=== PATIENT | female | born 1995 | race Caucasian/White ===

== ENCOUNTER 2017-01-27 22:06 | Emergency (ER) | payer BC, MEDICAID ==
[2017-01-27] MEDS ORDERED: Cyclobenzaprine 10 MG Tab PO ONE (22:43)
[2017-01-27] MEDS ORDERED: traMADol 50 MG Tab PO ONE (22:43)
--- NOTE | 2017-01-27 22:49 | EDM.PDOC ---
ED HPI GENERAL MEDICAL PROBLEM - General Chief Complaint: Abdominal Pain Stated Complaint: RT SIDE ABDOMINAL PAIN Time Seen by Provider: 01/27/17 22:44 Source of Information: Reports: Patient, Family, RN - History of Present Illness INITIAL COMMENTS - FREE TEXT/NARRATIVE: two day history of continuous right upper abdominal discomfort. no relation to eating no nausea no change in BM's no urinary symptoms works as a cook no tenderness to touch no dyspnea no cough no fever no prior similar symptoms recollected. she denies menstrual problems she denies chance of Past Medical History Cardiovascular History: Denies: Afib, Hypertension, AL Respiratory History: Denies: COPD Gastrointestinal History: Denies: Cirrhosis Genitourinary History: Denies: Chronic Renal Insuffiency Neurological History: Denies: CVA, MS Endocrine/Metabolic History: Denies: Diabetes, Type I, Diabetes, Type II ED ROS GENERAL - Review of Systems Review Of Systems: See Below Constitutional: Denies: Fever, Chills (see HPI) ED EXAM, GI/ABD - Physical Exam Exam: See Below (pain with passive stretch of abdominal muscles and active contraction of abdominal muscles but no tenderness to palpation when the patient is supine.) General Appearance: Alert, No Apparent Distress Throat/Mouth: Normal Lips, Normal Voice Head: Atraumatic Respiratory/Chest: No Respiratory Distress, Lungs Clear, Normal Breath Sounds Cardiovascular: Regular Rate, Rhythm GI/Abdominal Exam: Normal Bowel Sounds, Soft, Non-Tender, No Distention, No Mass. No: Distended, Guarding, Rigid, Rebound, Tender Neurological: Alert, Oriented, Normal Cognition Psychiatric: Normal Affect Course - Orders/Labs/Meds Orders: Active Orders 24 hr Category Date Time Status Cyclobenzaprine [Flexeril] Med 01/27/17 22:43 Once 10 mg PO ONETIME ONE traMADol [Ultram] Med 01/27/17 22:43 Once 100 mg PO ONETIME ONE - Re-Assessments/Exams Free Text/Narrative Re-Assessment/Exam: 01/27/17 22:48 we discussed potential work up now for the possibility of atypical biliary colic. We decided to give a therapeutic trial with plans for further evaluation if she is not improving. She agrees. Departure - Departure Time of Disposition: 22:50 Disposition: Home, Self-Care 01 Clinical Impression: Muscle strain - Discharge Information Forms: ED Department Discharge Additional Instructions: off work until Thursday tramadol may be habit forming, sedating and constipating recheck if not improving within two days; sooner if worsening occurs. your blood pressure was slightly elevated today; a recheck when you are feeling better is recommended. prescribed: tramadol 50 mg 1-2 po q 4 hours prn pain #20 flexeril 10 mg tid prn muscle pain #15 may use ibuprofen or tylenol as needed also Bayron Ortiz MD - My Orders Last 24 Hours: My Active Orders 01/27/17 22:43 Cyclobenzaprine [Flexeril] 10 mg PO ONETIME ONE traMADol [Ultram] 100 mg PO ONETIME ONE - Assessment/Plan Last 24 Hours: My Active Orders 01/27/17 22:43 Cyclobenzaprine [Flexeril] 10 mg PO ONETIME ONE traMADol [Ultram] 100 mg PO ONETIME ONE
[2017-01-27 23:10] VITALS: BP 131/77
== END 2017-01-27 23:06 | disposition home or self-care (01) ==
LOC: MW.ED 22:06
DX: S39.011A Strain of muscle, fascia and tendon of abdomen, initial encounter (principal); X58.XXXA Exposure to other specified factors, initial encounter
CPT/HCPCS: 99284; A9270; 99283

== ENCOUNTER 2017-08-19 04:38 | Emergency (ER) | payer SELFPAY ==
[2017-08-19] MEDS ORDERED: Sodium Chloride 0.9% 10 ML Syringe FLUSH PRN (04:51)
[2017-08-19] MEDS ORDERED: Sodium Chloride 0.9% 2.5 ML Syringe FLUSH PRN (04:51)
--- NOTE | 2017-08-19 04:55 | EDM.PDOC ---
ED HPI GENERAL MEDICAL PROBLEM - General Chief Complaint: Behavioral/Psych Stated Complaint: TOOK PILLS Time Seen by Provider: 08/19/17 04:40 - History of Present Illness INITIAL COMMENTS - FREE TEXT/NARRATIVE: HISTORY AND PHYSICAL: History of present illness: The patient is a 21-year-old female who presents with parents after she called her father saying that she "did something stupid". The father to call approximately 45 minutes ago and it is unclear when the patient actually took her overdose. Patient has a known history of depression and follows with our behavioral health counselor in the clinic and was just recently refilled a prescription on August 14 of Abilify 10 mg tablets #30 of which all are missing and her Prozac 40 mg was also refilled on this date of which 8 are missing. The patient has an old prescription for trazodone from July 2015 which is empty pill bottle but is unclear if she took any of these pills. Patient denies any coingestions of other medications and says that she is "just tired of all of this". This was an intentional gesture and according to the father she did have some vomiting at home which look like rice and beans that she had eaten earlier and he did not see any pills. Patient currently denies any chest pain shortness of breath abdominal pain nausea and has not had any systemic complaints earlier. According to the father he has noticed that she has been sleeping a lot when she is not at work and she recently got an eviction notice from where she lives which she believes may have pushed her into her behavior this evening. The patient says that she wants to give up and she has done with trying. Poison control was notified by me at 4:55 AM. Review of systems: As per history of present illness and below otherwise all systems reviewed and negative. Past medical history: As per history of present illness and as reviewed below otherwise noncontributory. Surgical history: As per history of present illness and as reviewed below otherwise noncontributory. Social history: No reported history of drug or alcohol abuse. Family history: As per history of present illness and as reviewed below otherwise noncontributory. Physical exam: Gen.: Well-developed well-nourished female who is overweight/obese about a signs are noted by me. She is drowsy but interactive and cooperative and follows simple commands. She was able to ambulate into the ED without assistance HEENT: Atraumatic, normocephalic, pupils reactive, negative for conjunctival pallor or scleral icterus, mucous membranes moist, throat clear, neck supple, nontender, trachea midline. Lungs: Clear to auscultation, breath sounds equal bilaterally, chest nontender. Heart: S1S2, regular rate and rhythm no overt murmurs Abdomen: Soft, nondistended, nontender. Negative for masses or hepatosplenomegaly. NABS. Pelvis: Stable nontender. Genitourinary: Deferred. Rectal: Deferred. Extremities: Atraumatic, negative for cords or calf pain. Neurovascular unremarkable. All range of motion without defects or deficits Neuro: Awake, alert, oriented. Gait into the ER was slow but steady and she did not require any assistance. Motor and sensory unremarkable throughout. Exam nonfocal. Skin: No evidence of any diaphoresis rashes or overt lesions, turgor is normal Diagnostics: EKG CBC CMP aspirin and Tylenol levels EtOH TSH UA UCG UDS Therapeutics: IV access O2 monitor KCl At 455am I discussed this case with poison control who will follow along. The say that the peak effect of the Abilify is 4-5 hours and she will need medical observation until that time. and that overall this drug with the Prozac will cause sedation and drowsiness; they also recommended to watch out for hypotension and tachycardia. The patient's current vitals are stable. 0504: Case was discussed with Dr. Weller the ER physician at [facility] who is aware of my conversation with poison control and the need for medical observation before transfer to psychiatry. He accepts the patient to the ER and I will follow up the patient's blood work and plan for transfer. I discussed these conversations with the father and patient area 0525: I have had 2 lengthy discussions with the parents at bedside and the father is very upset that we cannot medically observe her here in the emergency department and that she is being transferred. I have offered to contact our hospitalist and medically observe her in the hospital with goal to transfer her for psych care once she is more awake and less drowsy and he does not feel satisfied with that option or with the transfer. As the patient and he did not have insurance he is concerned about the cost of the ambulance transfer and the reevaluation at [facility] in [place]. In my discussion with him he would prefer to watch her here in the emergency department and then once she is more awake he would like to take her himself to [place]. He has been informed that this is not a possibility at this point and that we do not have the resources to observe patients in the ED for an unknown period of time. He is frustrated and disappointed but seems to be aware of my concerns and of his daughters medical necessity. All labs have been reviewed at this with the exception of the TSH which will forward to the receiving hospital. Impression: Intentional overdose Definitive disposition and diagnosis as appropriate pending reevaluation and review of above. - Related Data Allergies Allergy/AdvReac Type Severity Reaction Status Date / Time No Known Allergies Allergy Verified 08/19/17 04:59 Home Meds: Home Meds Dextroamphetamine/Amphetamine [Adderall] 40 mg PO BID 01/27/17 [History] FLUoxetine HCl [Prozac] 20 mg PO DAILY 01/27/17 [History] ARIPiprazole [Abilify] 10 mg PO DAILY 08/19/17 [History] Past Medical History Psychiatric History: Reports: ADD, Bipolar, Depression Social & Family History - Family History Family Medical History: Noncontributory - Tobacco Use Smoking Status *Q: Never Smoker - Recreational Drug Use Recreational Drug Use: No ED ROS GENERAL - Review of Systems Review Of Systems: ROS reveals no pertinent complaints other than HPI. ED EXAM, GENERAL - Physical Exam Exam: See Below (see dictation) Course - Vital Signs Last Recorded V/S: Last Vital Signs Temp 36.1 C 08/19/17 04:38 Pulse 80 08/19/17 05:23 Resp 16 08/19/17 05:23 BP 130/73 08/19/17 05:23 Pulse Ox 98 08/19/17 05:23 - Orders/Labs/Meds Orders: Active Orders 24 hr Category Date Time Status Blood Glucose Check, Bedside [RC] ONETIME Care 08/19/17 04:51 Active Cardiac Monitoring [RC] . DIRECTED Care 08/19/17 04:51 Active EKG Documentation Completion [RC] STAT Care 08/19/17 04:51 Active Oxygen Therapy, ED [RC] ASDIRECTED Care 08/19/17 04:51 Active Pulse Oximetry [RC] ASDIRECTED Care 08/19/17 04:51 Active ACETAMINOPHEN [CHEM] Stat Lab 08/19/17 04:48 Results COMPREHENSIVE METABOLIC PN,CMP [CHEM] Stat Lab 08/19/17 04:48 Results ETHANOL BLOOD MEDICAL [CHEM] Stat Lab 08/19/17 04:48 Results SALICYLATE [CHEM] Stat Lab 08/19/17 04:48 Results TSH [CHEM] Stat Lab 08/19/17 04:48 Results Potassium Chloride [Klor-Con M20] Med 08/19/17 05:28 Once 40 meq PO ONETIME ONE Sodium Chloride 0.9% [Saline Flush] Med 08/19/17 04:51 Active 10 ml FLUSH ASDIRECTED PRN Sodium Chloride 0.9% [Saline Flush] Med 08/19/17 04:51 Active 2.5 ml FLUSH ASDIRECTED PRN Saline Lock Insert [OM.PC] Stat Oth 08/19/17 04:51 Ordered Medication Orders Potassium Chloride (Klor-Con M20) 40 meq PO ONETIME ONE Stop: 08/19/17 05:29 Sodium Chloride (Saline Flush) 10 ml FLUSH ASDIRECTED PRN PRN Reason: Keep Vein Open Sodium Chloride (Saline Flush) 2.5 ml FLUSH ASDIRECTED PRN PRN Reason: Keep Vein Open Labs: Laboratory Tests 08/19/17 08/19/17 08/19/17 Range/Units 04:48 04:48 04:48 WBC 11.89 H (4.0-11.0) K/uL RBC 4.28 L (4.30-5.90) M/uL Hgb 12.6 (12.0-16.0) g/dL Hct 36.7 (36.0-46.0) % MCV 85.7 (80.0-98.0) fL MCH 29.4 (27.0-32.0) pg MCHC 34.3 (31.0-37.0) g/dL RDW Std Deviation 42.3 (28.0-62.0) fl RDW Coeff of Micah 14 (11.0-15.0) % Plt Count 201 (150-400) K/uL MPV 10.70 (7.40-12.00) fL Neut % (Auto) 43.6 L (48.0-80.0) % Lymph % (Auto) 48.7 H (16.0-40.0) % Cross % (Auto) 6.9 (0.0-15.0) % Eos % (Auto) 0.6 (0.0-7.0) % Baso % (Auto) 0.2 (0.0-1.5) % Neut # (Auto) 5.2 (1.4-5.7) K/uL Lymph # (Auto) 5.8 H (0.6-2.4) K/uL Cross # (Auto) 0.8 (0.0-0.8) K/uL Eos # (Auto) 0.1 (0.0-0.7) K/uL Baso # (Auto) 0.0 (0.0-0.1) K/uL Nucleated RBC % 0.0 /100WBC Nucleated RBCs # 0 K/uL Sodium 140 (136-146) mmol/L Potassium 2.9 L (3.5-5.1) mmol/L Chloride 108 (98-110) mmol/L Carbon Dioxide 23 (21-31) mmol/L BUN 11 (6.0-23.0) mg/dL Creatinine 0.8 (0.6-1.5) mg/dL Est Cr Clr Drug Dosing 134.63 mL/min Estimated GFR (MDRD) > 60.0 ml/min Glucose 106 (60-110) mg/dL Calcium 8.9 (8.8-10.8) mg/dL Total Bilirubin 0.4 (0.1-1.5) mg/dL AST 17 (5-40) IU/L ALT 29 (8-54) IU/L Alkaline Phosphatase 75 (40-150) Total Protein 7.2 (6.0-8.0) g/dL Albumin 4.0 (3.5-5.0) g/dL Globulin 3.2 (2.0-3.5) g/dL Albumin/Globulin Ratio 1.3 (1.3-2.8) Urine Color Urine Appearance Urine pH (5.0-8.0) Ur Specific [place] (1.001-1.035) Urine Protein (NEGATIVE) mg/dL Urine Glucose (UA) (NEGATIVE) mg/dL Urine Ketones (NEGATIVE) mg/dL Urine Occult Blood (NEGATIVE) Urine Nitrite (NEGATIVE) Urine Bilirubin (NEGATIVE) Urine Urobilinogen (<2.0) EU/dL Ur Leukocyte Esterase (NEGATIVE) Urine RBC (0-2/HPF) Urine WBC (0-5/HPF) Ur Epithelial Cells (NONE-FEW) Urine Bacteria (NEGATIVE) Urine HCG, Qual NEGATIVE (NEGATIVE) Salicylates < 5.0 (0-20) mg/dL Urine Opiates Screen (NEGATIVE) Ur Oxycodone Screen (NEGATIVE) Urine Methadone Screen (NEGATIVE) Acetaminophen < 3.0 ug/mL Ur Barbiturates Screen (NEGATIVE) Ur Phencyclidine Scrn (NEGATIVE) Ur Amphetamine Screen (NEGATIVE) U Methamphetamines Scrn (NEGATIVE) U Benzodiazepines Scrn (NEGATIVE) U Cocaine Metab Screen (NEGATIVE) U Marijuana (THC) Screen (NEGATIVE) Ethyl Alcohol < 10.0 mg/dL 08/19/17 08/19/17 Range/Units 04:48 04:48 WBC (4.0-11.0) K/uL RBC (4.30-5.90) M/uL Hgb (12.0-16.0) g/dL Hct (36.0-46.0) % MCV (80.0-98.0) fL MCH (27.0-32.0) pg MCHC (31.0-37.0) g/dL RDW Std Deviation (28.0-62.0) fl RDW Coeff of Micah (11.0-15.0) % Plt Count (150-400) K/uL MPV (7.40-12.00) fL Neut % (Auto) (48.0-80.0) % Lymph % (Auto) (16.0-40.0) % Cross % (Auto) (0.0-15.0) % Eos % (Auto) (0.0-7.0) % Baso % (Auto) (0.0-1.5) % Neut # (Auto) (1.4-5.7) K/uL Lymph # (Auto) (0.6-2.4) K/uL Cross # (Auto) (0.0-0.8) K/uL Eos # (Auto) (0.0-0.7) K/uL Baso # (Auto) (0.0-0.1) K/uL Nucleated RBC % /100WBC Nucleated RBCs # K/uL Sodium (136-146) mmol/L Potassium (3.5-5.1) mmol/L Chloride (98-110) mmol/L Carbon Dioxide (21-31) mmol/L BUN (6.0-23.0) mg/dL Creatinine (0.6-1.5) mg/dL Est Cr Clr Drug Dosing mL/min Estimated GFR (MDRD) ml/min Glucose (60-110) mg/dL Calcium (8.8-10.8) mg/dL Total Bilirubin (0.1-1.5) mg/dL AST (5-40) IU/L ALT (8-54) IU/L Alkaline Phosphatase (40-150) Total Protein (6.0-8.0) g/dL Albumin (3.5-5.0) g/dL Globulin (2.0-3.5) g/dL Albumin/Globulin Ratio (1.3-2.8) Urine Color YELLOW Urine Appearance HAZY Urine pH 6.0 (5.0-8.0) Ur Specific [place] 1.025 (1.001-1.035) Urine Protein NEGATIVE (NEGATIVE) mg/dL Urine Glucose (UA) NEGATIVE (NEGATIVE) mg/dL Urine Ketones NEGATIVE (NEGATIVE) mg/dL Urine Occult Blood NEGATIVE (NEGATIVE) Urine Nitrite NEGATIVE (NEGATIVE) Urine Bilirubin NEGATIVE (NEGATIVE) Urine Urobilinogen 0.2 (<2.0) EU/dL Ur Leukocyte Esterase NEGATIVE (NEGATIVE) Urine RBC 0-2 (0-2/HPF) Urine WBC 1-2 (0-5/HPF) Ur Epithelial Cells MODERATE (NONE-FEW) Urine Bacteria 1+ H (NEGATIVE) Urine HCG, Qual (NEGATIVE) Salicylates (0-20) mg/dL Urine Opiates Screen NEGATIVE (NEGATIVE) Ur Oxycodone Screen NEGATIVE (NEGATIVE) Urine Methadone Screen NEGATIVE (NEGATIVE) Acetaminophen ug/mL Ur Barbiturates Screen NEGATIVE (NEGATIVE) Ur Phencyclidine Scrn NEGATIVE (NEGATIVE) Ur Amphetamine Screen NEGATIVE (NEGATIVE) U Methamphetamines Scrn NEGATIVE (NEGATIVE) U Benzodiazepines Scrn NEGATIVE (NEGATIVE) U Cocaine Metab Screen NEGATIVE (NEGATIVE) U Marijuana (THC) Screen NEGATIVE (NEGATIVE) Ethyl Alcohol mg/dL Meds: Medications Generic Name Dose Route Start Last Admin Trade Name Freq PRN Reason Stop Dose Admin Potassium Chloride 40 meq 08/19/17 05:28 Klor-Con M20 PO 08/19/17 05:29 ONETIME ONE Sodium Chloride 10 ml 08/19/17 04:51 Saline Flush FLUSH ASDIRECTED PRN Keep Vein Open Sodium Chloride 2.5 ml 08/19/17 04:51 Saline Flush FLUSH ASDIRECTED PRN Keep Vein Open Departure - Departure Time of Disposition: 05:32 Disposition: DC/Tfer to Acute Hospital 02 Condition: Good Clinical Impression: Intentional overdose of drug in tablet form - Discharge Information Referrals: Charlotte Brower [facility] [employer] [Primary Care Provider] - Forms: ED Department Discharge - My Orders Last 24 Hours: My Active Orders 08/19/17 04:48 ACETAMINOPHEN [CHEM] Stat COMPREHENSIVE METABOLIC PN,CMP [CHEM] Stat ETHANOL BLOOD MEDICAL [CHEM] Stat SALICYLATE [CHEM] Stat TSH [CHEM] Stat 08/19/17 04:51 Blood Glucose Check, Bedside [RC] ONETIME Cardiac Monitoring [RC] . DIRECTED EKG Documentation Completion [RC] STAT Oxygen Therapy, ED [RC] ASDIRECTED Pulse Oximetry [RC] ASDIRECTED Sodium Chloride 0.9% [Saline Flush] 10 ml FLUSH ASDIRECTED PRN Sodium Chloride 0.9% [Saline Flush] 2.5 ml FLUSH ASDIRECTED PRN Saline Lock Insert [OM.PC] Stat 08/19/17 05:28 Potassium Chloride [Klor-Con M20] 40 meq PO ONETIME ONE - Assessment/Plan Last 24 Hours: My Active Orders 08/19/17 04:48 ACETAMINOPHEN [CHEM] Stat COMPREHENSIVE METABOLIC PN,CMP [CHEM] Stat ETHANOL BLOOD MEDICAL [CHEM] Stat SALICYLATE [CHEM] Stat TSH [CHEM] Stat 08/19/17 04:51 Blood Glucose Check, Bedside [RC] ONETIME Cardiac Monitoring [RC] . DIRECTED EKG Documentation Completion [RC] STAT Oxygen Therapy, ED [RC] ASDIRECTED Pulse Oximetry [RC] ASDIRECTED Sodium Chloride 0.9% [Saline Flush] 10 ml FLUSH ASDIRECTED PRN Sodium Chloride 0.9% [Saline Flush] 2.5 ml FLUSH ASDIRECTED PRN Saline Lock Insert [OM.PC] Stat 08/19/17 05:28 Potassium Chloride [Klor-Con M20] 40 meq PO ONETIME ONE
[2017-08-19 05:18] LABS: ACETAMINOPHEN < 3.0 ug/mL; CHLORIDE,CL 108 mmol/L (98-110); SODIUM,NA 140 mmol/L (136-146)
[2017-08-19 05:24] VITALS: BP 130/73
[2017-08-19] MEDS ORDERED: Potassium Chloride 20 MEQ Tab.ER PO ONE (05:28)
== END 2017-08-19 06:20 ==
LOC: MW.ED 04:38
DX: T65.92XA Toxic effect of unspecified substance, intentional self-harm, initial encounter (principal); R11.10 Vomiting, unspecified; Z79.899 Other long term (current) drug therapy
CPT/HCPCS: 36415; 80053; 80305; 81001; 81025; 82962; 84443; 85025; 93005; 99285; A9270; G0480; 99284